=== PATIENT | female | born 2000 | race Two or more races ===

== ENCOUNTER 2021-05-30 05:00 | Emergency (ER) | payer MEDICAID ==
[~2021-05-30] VITALS: Ht 152.4 cm; Wt 59.0 kg
[2021-05-30 05:24] VITALS: BP 113/71
== END 2021-05-30 05:25 ==
LOC: ER 05:00
DX: F19.90 Other psychoactive substance use, unspecified, uncomplicated (principal); J45.909 Unspecified asthma, uncomplicated; V89.2XXA Person injured in unspecified motor-vehicle accident, traffic, initial encounter; Y93.89 Activity, other specified; Y92.89 Other specified places as the place of occurrence of the external cause; Y99.8 Other external cause status